=== PATIENT | female | born 1965 | race African-American/Black ===

== ENCOUNTER 2017-06-19 22:36 | Emergency (ER) | payer OTHER ==
[~2017-06-19] VITALS: Ht 182.9 cm; Wt 96.0 kg
[2017-06-19 23:46] VITALS: BP 140/86
== END 2017-06-20 10:48 | disposition left against medical advice (07) ==
LOC: ER 06-20 10:44
DX: R51 Headache (principal); Z53.21 Procedure and treatment not carried out due to patient leaving prior to being seen by health care provider